=== PATIENT | female | born 1965 | race Caucasian/White ===

== ENCOUNTER 2016-07-22 12:32 | Day surgery (SDC) | payer OTHER ==
--- NOTE | ~2016-07-22 | EGD ---
EGD REPORT [facility] [address] [place] [address] NAME: JULIA JUSTIN : [birth year] STATUS : REG [facility] PAT#: [id number] AGE: 51 ADM/REG DATE : 07/22/16 MR#: [id number] REPORT SERV DATE: 07/22/16 DICTATED BY: PHUONG CONKLIN DATE: 07/22/16 REPORT STATUS : Draft [facility]ANSCRIBED [facility]: [facility] DATE: 07/22/16 Endoscopy Center Patient Name: Julia Justin Date of : 1965 Attending MD: PHUONG CONKLIN MD Procedure Date No Time: 07/22/2016 Procedure: Colonoscopy Indications: Screening for colorectal malignant neoplasm, FH of Colon Cancer -distant relative Referring MD: AHMET MATHIS Medicines: Propofol per Anesthesia Complications: No immediate complications. Estimated blood loss: None. Procedure: Pre-Anesthesia Assessment: - After reviewing the risks and benefits, the patient was deemed in satisfactory condition to undergo the procedure. - Prior to the procedure, a History and Physical was performed, and patient medications and allergies were reviewed. The patient's tolerance of previous anesthesia was also reviewed. The risks and benefits of the procedure and the sedation options and risks were discussed with the patient. All questions were answered, and informed consent was obtained. Prior Anticoagulants: The patient has taken no previous anticoagulant or antiplatelet agents. ASA Grade Assessment: III - A patient with severe systemic disease. After reviewing the risks and benefits, the patient was deemed in satisfactory condition to undergo the procedure. After I obtained informed consent, the scope was passed under direct vision. Throughout the procedure, the patient's blood pressure, pulse, and oxygen saturations were monitored continuously. The CF [id number] was introduced through the anus and advanced to the cecum, identified by appendiceal orifice and ileocecal valve. The colonoscopy was somewhat difficult due to the patient's body habitus. Successful completion of the procedure was aided by applying abdominal pressure. The ileocecal valve and appendiceal orifice were photographed. The patient tolerated the procedure well. The quality of the bowel preparation was good. The bowel preparation used was split dose SUPREP. Scope withdrawal time was greater than 6 minutes. Findings: The perianal and digital rectal examinations were normal. Pertinent EGD REPORT [address] [address] NAME: JULIA JUSTIN : [birth year] STATUS : REG [facility] PAT#: [id number] AGE: 51 ADM/REG DATE : 07/22/16 MR#: [id number] REPORT SERV DATE: 07/22/16 DICTATED BY: PHUONG CONKLIN DATE: 07/22/16 REPORT STATUS : Draft TRANSCRIBED BY: [employer] DATE: 07/22/16 negatives include normal sphincter tone. The entire examined colon appeared normal on direct and retroflexion views. Impression: - The entire examined colon is normal on direct and retroflexion views. Recommendation: - Discharge patient to home (ambulatory). - Return to previous diet. - Continue present medications. - Collect Hemoccults on three spontaneously passed stools annually. - Repeat colonoscopy in 5-10 years for screening purposes. - Patient has a contact number available for emergencies. The signs and symptoms of potential delayed complications were discussed with the patient. Return to normal activities tomorrow. Written discharge instructions were provided to the patient. Procedure Code(s): --- Professional --- G0121, Colorectal cancer screening; colonoscopy on individual not meeting criteria for high risk Diagnosis Code(s): --- Professional --- Z12.11, Encounter for screening for malignant neoplasm of colon Z80.0, Family history of malignant neoplasm of digestive organs CPT copyright 2013 [employer]. All rights reserved. The codes documented in this report are preliminary and upon certified athletic trainer review may be revised to meet current compliance requirements. PHUONG CONKLIN MD 07/22/2016 3:08 PM This report has been signed electronically. Number of Addenda: 0 Note Initiated On: 07/22/2016 2:43 PM Scope Withdrawal Time 0 hours 6 minutes 23 seconds [id number] [place] [id number]
--- NOTE | ~2016-07-22 | EGD ---
EGD REPORT [facility] [address] [place]. [address] NAME: JULIA JUSTIN : [birth year] STATUS : REG [facility] PAT#: [id number] AGE: 51 ADM/REG DATE : 07/22/16 MR#: [id number] REPORT SERV DATE: 07/22/16 DICTATED BY: PHUONG CONKLIN DATE: 07/22/16 REPORT STATUS : Draft TRANSCRIBED BY: [facility] DATE: 07/22/16 Endoscopy Center Patient Name: Julia Justin Date of : 1965 Attending MD: PHUONG CONKLIN MD Procedure Date No Time: 07/22/2016 Procedure: Upper GI endoscopy Indications: Dyspepsia, Dysphagia, Heartburn Referring MD: AHMET MATHIS Medicines: Propofol per Anesthesia Complications: No immediate complications. Estimated blood loss: None. Procedure: Pre-Anesthesia Assessment: - After reviewing the risks and benefits, the patient was deemed in satisfactory condition to undergo the procedure. - Prior to the procedure, a History and Physical was performed, and patient medications and allergies were reviewed. The patient's tolerance of previous anesthesia was also reviewed. The risks and benefits of the procedure and the sedation options and risks were discussed with the patient. All questions were answered, and informed consent was obtained. Prior Anticoagulants: The patient has taken no previous anticoagulant or antiplatelet agents. ASA Grade Assessment: III - A patient with severe systemic disease. After reviewing the risks and benefits, the patient was deemed in satisfactory condition to undergo the procedure. After obtaining informed consent, the endoscope was passed under direct vision. Throughout the procedure, the patient's blood pressure, pulse, and oxygen saturations were monitored continuously. The GIF [id number] was introduced through the mouth, and advanced to the third part of duodenum. The upper GI endoscopy was accomplished without difficulty. The patient tolerated the procedure well. Findings: Savary-Copeland Grade I (single erosion or exudate, oval or linear, single fold) esophagitis with no bleeding was found. The gastroesophageal junction was normal. A guidewire was placed and the scope was withdrawn. Dilation was performed with a Savary dilator with mild resistance at 48 Fr. Estimated blood loss: none. Multiple non-bleeding linear erosions were found in the gastric antrum. There were no stigmata of recent bleeding. Biopsies were taken with a cold forceps for histology. Estimated blood loss: none. EGD REPORT [address] [address] NAME: JULIA JUSTIN : [birth year] STATUS : REG [facility]#: [id number] AGE: 51 ADM/REG DATE : 07/22/16 MR#: [id number] REPORT SERV DATE: 07/22/16 DICTATED BY: PHUONG CONKLIN DATE: 07/22/16 REPORT STATUS : Draft TRANSCRIBED BY: [employer] DATE: 07/22/16 On retroflexion there was some external compression noted in the cardia of the stomach. The examined duodenum was normal. Impression: - Savary-Copeland Grade I reflux esophagitis. - Normal gastroesophageal junction. Dilated. - Erosive gastropathy. Biopsied. - Normal examined duodenum. - GERD. Recommendation: - Discharge patient to home (ambulatory). - Stop smoking. - Decrease excess weight. - Avoid aspirin, ibuprofen, and other NSAID medications. - Increase Protonix (pantoprazole) to 40 mg twice daily for 1 month then decrease to once daily for maintenance. - Increase Carafate (sucralfate) to 1 gram three times daily. - Await pathology results. - Perform a colonoscopy today. - Patient has a contact number available for emergencies. The signs and symptoms of potential delayed complications were discussed with the patient. Return to normal activities tomorrow. Written discharge instructions were provided to the patient. Procedure Code(s): --- Professional --- 40896, Esophagogastroduodenoscopy, flexible, transoral; with insertion of guide wire followed by passage of dilator(s) through esophagus over guide wire 31506, Esophagogastroduodenoscopy, flexible, transoral; with biopsy, single or multiple Diagnosis Code(s): --- Professional --- K21.0, Gastro-esophageal reflux disease with esophagitis K31.9, Disease of stomach and duodenum, unspecified K30, Functional dyspepsia R13.10, Dysphagia, unspecified R12, Heartburn CPT copyright 2013 [employer]. All rights reserved. The codes documented in this report are preliminary and upon candle cutter review may be revised to meet current compliance requirements. EGD REPORT [facility] [address] [address] NAME: JULIA JUSTIN : [birth year] STATUS : REG [facility]#: [id number] AGE: 51 ADM/REG DATE : 07/22/16 MR#: [id number] REPORT SERV DATE: 07/22/16 DICTATED BY: PHUONG CONKLIN DATE: 07/22/16 REPORT STATUS : Draft TRANSCRIBED BY: [employer] DATE: 07/22/16 PHUONG CONKLIN MD 07/22/2016 2:50 PM This report has been signed electronically. Number of Addenda: 0 Note Initiated On: 07/22/2016 2:17 PM Scope Withdrawal Time 0 hours 0 minutes 0 seconds [address] [place] [address]
[~2016-07-22 12:32] MED LIST: BUSPAR15 M1 PO; CIP5 PO; LAMICTAL25 PO; MEDROLPAK4 PO; PLAQ200B PO; PR25 PO; PROTONIX PO; T PO; VITAMIN B-121000 MC1 SL
== END 2016-07-22 23:59 | disposition home or self-care (01) ==
LOC: DMU 12:32
PROVIDERS: Internal Medicine Gastroenterology
PROC: 0D748ZZ Dilation of Esophagogastric Junction, Via Natural or Artificial Opening Endoscopic (ICD-10-PCS; 2016-07-22)
PROC: 0DJD8ZZ Inspection of Lower Intestinal Tract, Via Natural or Artificial Opening Endoscopic (ICD-10-PCS; principal; 2016-07-22 14:00)
PROC: 0DB68ZX Excision of Stomach, Via Natural or Artificial Opening Endoscopic, Diagnostic (ICD-10-PCS; 2016-07-22 14:00)
DX: Z12.11 Encounter for screening for malignant neoplasm of colon (principal); K21.0 Gastro-esophageal reflux disease with esophagitis; K25.9 Gastric ulcer, unspecified as acute or chronic, without hemorrhage or perforation; G47.33 Obstructive sleep apnea (adult) (pediatric); F17.210 Nicotine dependence, cigarettes, uncomplicated; F31.9 Bipolar disorder, unspecified; Z80.0 Family history of malignant neoplasm of digestive organs; Z88.8 Allergy status to other drugs, medicaments and biological substances; Z88.1 Allergy status to other antibiotic agents; Z90.49 Acquired absence of other specified parts of digestive tract; Z90.710 Acquired absence of both cervix and uterus; Z98.890 Other specified postprocedural states; Z79.899 Other long term (current) drug therapy
CPT/HCPCS: 88305; J2405